=== PATIENT | male | born 1980 | race Hispanic/Latino ===

== ENCOUNTER 2021-12-30 23:55 | Emergency (ER) | payer OTHER, SELFPAY ==
[2021-12-31] MEDS ORDERED: Boostrix 0.5 ML (Tdap) VIAL ONE (00:15)
[2021-12-31] MEDS ORDERED: Bacitracin 1 PK ONE (00:27)
[2021-12-31] MEDS ORDERED: Lidocaine 2% 20 ml MDV ONE (00:27)
[2021-12-31] MEDS ORDERED: Clindamycin 150 MG CAP ONE (00:49)
== END 2021-12-31 00:55 | disposition home or self-care (01) ==
LOC: MADERS 23:55
DX: S90.852A Superficial foreign body, left foot, initial encounter (principal); W45.8XXA Other foreign body or object entering through skin, initial encounter
CPT/HCPCS: 28190; 90471; 90715